=== PATIENT | male | born 1975 | race Caucasian/White ===

== ENCOUNTER 2017-04-10 18:20 | Emergency (ER) | payer OTHER ==
[~2017-04-10 18:20] MED LIST: TEST-25 INJ
[2017-04-10 18:25] VITALS: BP 179/87; PULSE 60; RESP 20; TEMP 98.4; O2SAT 95
--- NOTE | 2017-04-10 18:44 | PD ---
HPI Chief Complaint: Pain: Acute or Chronic Time Seen by Provider: 18:23 Travel History International Travel<30 days: No Contact w/Intl Traveler<30days: No Traveled to known affect area: No History of Present Illness HPI This patient complains of chest pain. Started this morning, duration 12 hours. It's wax and wane throughout the day. Feels like a central sternal pressure and heaviness. He is currently pain-free. No cough or fever or heartburn. He denies any medical history. He has [id number] history of smoking but quit years back. Symptoms severity was moderate. No alleviating factors. No history of stress testing PFSH Past Medical History Asthma: No Cancer: No Cardiovascular Problems: No COPD: No Diabetes: No Endocrine: No Gastrointestinal Disorders: Yes (RECTAL ) Genitourinary: No Hepatitis: No Hiatal Hernia: No Immune Disorder: No Musculoskeletal: No Neurologic: No Psychiatric: No Respiratory: No Thyroid Disease: No Tetanus Vaccination: < 5 Years Influenza Vaccination: Yes Past Surgical History Abdominal Surgery: No AICD: No Cardiac Surgery: No Ear Surgery: No Endocrine Surgery: No Eye Surgery: No Genitourinary Surgery: No Gynecologic Surgery: No Joint Replacement: No Oral Surgery: No Pacemaker: No Thoracic Surgery: No Other Surgery: Yes (RECTAL FISTULA) Social History Alcohol Use: Yes (OCC) Tobacco Use: No (QUIT 10 YEARS AGO) Substance Use: No Allergies-Medications (Allergen,Severity, Reaction): Coded Allergies: No Known Allergies (Unverified , 11/12/12) Reported Meds & Prescriptions Reported Meds & Active Scripts Active Review of Systems General / Constitutional: No: Fever Eyes: No: Visual changes HENT: No: Headaches Cardiovascular: Positive: Chest Pain or Discomfort Respiratory: No: Shortness of Breath Gastrointestinal: No: Abdominal Pain Genitourinary: No: Dysuria Musculoskeletal: No: Pain Skin: No Rash Neurologic: No: Weakness Psychiatric: No: Depression Endocrine: No: Polydipsia Hematologic/Lymphatic: No: Easy Bruising Physical Exam Narrative GENERAL: Well-nourished, well-developed patient in no apparent distress. SKIN: Focused skin assessment reveals no rash and nodules. Skin is Warm and dry. HEAD: Atraumatic. Normocephalic. EYES: Pupils equal and round. No scleral icterus. No injection or drainage. ENT: No nasal bleeding or discharge. Mucous membranes pink and moist. NECK: Trachea midline. No JVD. CARDIOVASCULAR: Regular rate and rhythm. No murmur appreciated. RESPIRATORY: No accessory muscle use. Clear to auscultation. Breath sounds equal bilaterally. GASTROINTESTINAL: Abdomen soft, non-tender, nondistended. Hepatic and splenic margins not palpable. MUSCULOSKELETAL: No obvious deformities. No clubbing. No cyanosis. No edema. NEUROLOGICAL: Awake and alert. No obvious cranial nerve deficits. Motor grossly within normal limits. Normal speech. PSYCHIATRIC: Appropriate mood and affect; insight and judgment normal. Data Data Last Documented VS Vital Signs Date Time Temp Pulse Resp B/P (MAP) Pulse Ox O2 Delivery O2 Flow Rate FiO2 04/10/17 18:34 20 04/10/17 18:25 98.4 60 179/87 (117) 95 MDM Medical Decision Making Medical Screen Exam Complete: Yes Emergency Medical Condition: Yes Medical Record Reviewed: Yes Differential Diagnosis Differential diagnosis includes GA, angina, pericarditis, pleurisy, GERD, anxiety. Narrative Course I have reviewed the patient's electronic medical record. I reviewed his EKG which shows sinus rhythm but no ST elevation or ectopy He took an aspirin prior to arrival I've ordered a cardiac workup Will have Dr. Sawyer assist with disposition after workup complete My expectation would be a chest pain center observation and I reviewed that with the patient Diagnosis Primary Impression: Chest pain in adult Admitting Information Admitting Physician Requests: Observation Akash Yates MD Apr 10, 2017 18:44
[2017-04-10] MEDS ORDERED: SODIUM CHLORIDE 0.9% FLUSH 10 ML FLUSH IVF PRN (18:45)
[2017-04-10 19:00] VITALS: BP 139/60; PULSE 52; RESP 16; O2SAT 97
[2017-04-10 19:03] LABS: AUTOMATED NEUTROPHIL # 4.1 TH/MM3 (1.8-7.7); BASOPHIL % 0.5 % (0.0-2.0); EOSINOPHIL # 0.3 TH/MM3 (0-0.4); EOSINOPHIL % 3.6 % (0.0-4.0); HEMATOCRIT 41.7 % (39.0-51.0); HEMO FLAGS DIFF FINAL; LYMPH % 33.7 % (9.0-44.0); LYMPHOCYTE # 2.6 TH/MM3 (1.0-4.8); MEAN CELL VOLUME 87.7 FL (80.0-100.0); MEAN CORPUSCULAR HEMOGLOBIN 29.1 PG (27.0-34.0); MEAN CORPUSCULAR HGB CONC 33.1 % (32.0-36.0); NEUT % 52.2 % (16.0-70.0); PLATELET COUNT 300 TH/MM3 (150-450); RED BLOOD COUNT 4.76 MIL/MM3 (4.50-5.90); RED CELL DISTRIBUTION WIDTH 11.9 % (11.6-17.2); WHITE BLOOD COUNT 7.8 TH/MM3 (4.0-11.0)
[2017-04-10 19:05] LABS: CHLORIDE 104 MEQ/L (98-107); POTASSIUM 3.4 MEQ/L (3.5-5.1); SODIUM (NA) 138 MEQ/L (136-145)
[2017-04-10 19:08] LABS: ANION GAP 5 MEQ/L (5-15); BICARBONATE 28.7 MEQ/L (21.0-32.0)
[2017-04-10 19:09] LABS: BLOOD UREA NITROGEN 22 MG/DL (7-18); MAGNESIUM 2.2 MG/DL (1.5-2.5)
[2017-04-10 19:11] LABS: APTT (PATIENT) 29.2 SEC (24.3-30.1); INTERNATIONAL NORMALIZED RATIO 0.9 RATIO; PROTHROMBIN TIME - PATIENT 10.3 SEC (9.8-11.6)
[2017-04-10 19:12] LABS: GLOMERULAR FILTRATION RATE 73 ML/MIN (>89)
[2017-04-10 19:15] LABS: CREATINE KINASE 186 U/L (39-308)
--- NOTE | 2017-04-10 19:24 | RADRPT ---
EXAM DATE/TIME: 04/10/2017 19:01 [facility] COMPARISON: No previous studies available for comparison. INDICATIONS : Chest pain. MEDICAL HISTORY : None. SURGICAL HISTORY : None. ENCOUNTER: Initial ACUITY: 1 day PAIN SCORE: 5/10 LOCATION: chest substernal. FINDINGS: A single view of the chest demonstrates the lungs to be symmetrically aerated without evidence of mas s, infiltrate or effusion. The cardiomediastinal contours are unremarkable. Osseous structures are intact. CONCLUSION: No acute disease. Darnell Wilcox MD on April 10, 2017 at 19:22 Board Certified Radiologist. This report was verified electronically.
[2017-04-10 19:27] LABS: CKMB 0.6 NG/ML (0.5-3.6)
--- NOTE | 2017-04-10 19:38 | PD ---
Physical Exam Time Seen by Provider: 19:[address] Roby Severino left this patient for me to check the laboratory and chest x-ray make a disposition. Data Data Last Documented VS Vital Signs Date Time Temp Pulse Resp B/P (MAP) Pulse Ox O2 Delivery O2 Flow Rate FiO2 04/10/17 19:09 52 16 04/10/17 19:00 139/60 (86) 97 Room Air 04/10/17 18:25 98.4 Orders Orders Electrocardiogram (04/10/17 18:44) Basic Metabolic Panel (Bmp) (04/10/17 18:44) Ckmb (Isoenzyme) Profile (04/10/17 18:44) Complete Blood Count With Diff (04/10/17 18:44) Magnesium (Mg) (04/10/17 18:44) Prothrombin Time / Inr (Pt) (04/10/17 18:44) Act Partial Throm Time (Ptt) (04/10/17 18:44) Troponin I (04/10/17 18:44) Chest, Single Ap (04/10/17 18:44) Ecg Monitoring (04/10/17 18:44) Iv Access Insert/Monitor (04/10/17 18:44) Oximetry (04/10/17 18:44) Sodium Chloride 0.9% Flush (Ns Flush) (04/10/17 18:45) CKMB (04/10/17 18:45) CKMB% (04/10/17 18:45) Labs Laboratory Tests Test 04/10/17 18:45 White Blood Count 7.8 TH/MM3 Red Blood Count 4.76 MIL/MM3 Hemoglobin 13.8 GM/DL Hematocrit 41.7 % Mean Corpuscular Volume 87.7 FL Mean Corpuscular Hemoglobin 29.1 PG Mean Corpuscular Hemoglobin Concent 33.1 % Red Cell Distribution Width 11.9 % Platelet Count 300 TH/MM3 Mean Platelet Volume 8.2 FL Neutrophils (%) (Auto) 52.2 % Lymphocytes (%) (Auto) 33.7 % Monocytes (%) (Auto) 10.0 % Eosinophils (%) (Auto) 3.6 % Basophils (%) (Auto) 0.5 % Neutrophils # (Auto) 4.1 TH/MM3 Lymphocytes # (Auto) 2.6 TH/MM3 Monocytes # (Auto) 0.8 TH/MM3 Eosinophils # (Auto) 0.3 TH/MM3 Basophils # (Auto) 0.0 TH/MM3 CBC Comment DIFF FINAL Differential Comment Prothrombin Time 10.3 SEC Prothromb Time International Ratio 0.9 RATIO Activated Partial Thromboplast Time 29.2 SEC Blood Urea Nitrogen 22 MG/DL Creatinine 1.10 MG/DL Random Glucose 102 MG/DL Calcium Level 8.9 MG/DL Magnesium Level 2.2 MG/DL Sodium Level 138 MEQ/L Potassium Level 3.4 MEQ/L Chloride Level 104 MEQ/L Carbon Dioxide Level 28.7 MEQ/L Anion Gap 5 MEQ/L Estimat Glomerular Filtration Rate 73 ML/MIN Total Creatine Kinase 186 U/L Creatine Kinase MB 0.6 NG/ML Troponin I LESS THAN 0.02 NG/ML MDM Medical Record Reviewed: Yes Supervised Visit with DARBY: Yes Interpretation(s) The EKG shows a sinus bradycardia of [address] elevation or depression. The chest x-ray is normal. The CBC is normal. The basic metabolic profile shows a potassium of 3.4 and GFR of 73 and BUN of 22 but is otherwise unremarkable. The cardiac enzymes are normal. The coagulation profile is normal. Differential Diagnosis Acute coronary syndrome, chest wall pain, chest pain etiology undetermined, esophageal pain, gastrointestinal pain, pleuritic pain, pulmonary embolus- unlikely Narrative Course The patient has chest pain etiology undetermined. It was strongly recommended that he be admitted to the chest pain center, he understood the limitations our testing today, but he says he'll do the stress test through his primary care physician. Diagnosis Primary Impression: Chest pain in adult Additional Instruction: As we discussed, there are limitations of our testing that we did today-they are not predictive. Follow-up with your primary care physician and I recommend that you do get a stress test through him. Med/Other Pt SpecificInfo: No Change to Meds Disposition: 01 DISCHARGE HOME Condition: Stable Anil Sawyer MD Apr 10, 2017 19:38
[2017-04-10 19:50] VITALS: BP 141/75; PULSE 45; RESP 16; O2SAT 97
--- NOTE | 2017-04-11 13:36 | EKG ---
Date Performed: 04/10/2017 Time Performed: 18:25:59 PTAGE: 41 years EKG: SINUS BRADYCARDIA BORDERLINE ECG INTERPRETATION BASED ON A DEFAULT AGE OF 39 YEARS NO PREVIOUS TRACING DOCTOR: Aminah Mooney Interpretating Date/Time 04/11/2017 13:32:31
== END 2017-04-10 19:54 | disposition home or self-care (01) ==
LOC: PHED 18:20
DX: R07.9 Chest pain, unspecified (principal); R00.1 Bradycardia, unspecified; Z87.891 Personal history of nicotine dependence
CPT/HCPCS: 71010; 80048; 82550; 82552; 83735; 84484; 85025; 85610; 85730; 93005